=== PATIENT | female | born 1960 | race Caucasian/White ===

== ENCOUNTER → 2018-05-23 | Outpatient (CLI) | payer OTHER | LOC: OD 09:11 | PROVIDERS: ATTEND Otolaryngology | DX: J01.91 Acute recurrent sinusitis, unspecified (principal) | CPT/HCPCS: 36415; 82785; 86003 ==

== ENCOUNTER → 2018-06-03 | Outpatient (CLI) | payer OTHER ==
--- NOTE | 2018-06-03 11:27 | RADIOLOGY REPORT (SQ) ---
EXAM DESCRIPTION: CT SINUSES FOR ENT COMPLETED DATE/TIME: 06/03/2018 9:36 am REASON FOR STUDY: J01.91 ACUTE RECURRENT SINUSITIS, UNSPECIFIED J01.91 ACUTE RECURRENT SINUSITIS, U NSPECIFIED COMPARISON: None. TECHNIQUE: Noncontrast scanning through the paranasal sinuses using bone algorithm. Reconstructed MPR images reviewed. All images stored on PACS. Images acquired for image guided surgery. All CT scanners at this facility use dose modulation, iterative reconstruction, and/or weight based d osing when appropriate to reduce radiation dose to as low as reasonably achievable (ALARA). [facility]: Dose Right [facility]: CareDose [facility]: Dose Right [facility]: Teradose 4D [facility]: [employer] RADIATION DOSE: 45.1 mGy. FINDINGS: NASAL PASSAGES: Clear. No polyps or masses. OSTEOMEATAL UNITS AND NASOFRONTAL DUCTS: Patent. No agger nasi or Bernadette cells. MAXILLARY SINUSES: Well-pneumatized and clear. Maxillary sinus outlets are patent. ETHMOID SINUSES: Well-pneumatized and clear. SPHENOID SINUSES: Well-pneumatized and clear. No sphenoethmoid air cells or pneumatized pterygoid rec ess. No pneumatized dorsal sella. FRONTAL SINUSES: Well-pneumatized and clear. MASTOID AIR CELLS: Clear. ORBITS: Normal and symmetrical. NASAL SEPTUM: Very mild leftward nasal septal deviation. No nasal septal spurs. TEMPOROMANDIBULAR JOINTS: Mild osteoarthritis bilaterally TURBINATES: No pneumatized turbinates. MUCOPERIOSTEAL THICKENING: No. MUCOCELE: No. OTHER: No other significant findings. IMPRESSION: NO EVIDENCE OF ACUTE SINUSITIS. TECHNICAL DOCUMENTATION: JOB ID: [id number] Quality ID # [id number]: Final reports with documentation of one or more dose reduction techniques (e.g., Au tomated exposure control, adjustment of the mA and/or kV according to patient size, use of iterative reconstruction technique) 2010 [employer]- All Rights Reserved Reading location - IP/workstation name: [email or web address]
== END ==
LOC: RAD 13:14
PROVIDERS: ATTEND Otolaryngology
DX: J01.91 Acute recurrent sinusitis, unspecified (principal)
CPT/HCPCS: 70486

== ENCOUNTER 2019-04-01 08:55 | Day surgery (SDC) | payer OTHER ==
[~2019-04-01 08:55] MED LIST: CEFAZOLIN 1 GM/D5W RTU 1 GM/50 ML RTUPB IV PRN; LIDOCAINE 0.5% INJ-PF (5 MG/ML) 50 ML SDV SUBCUT PRN; RINGERS SOLUTION,LACTATED 1,000 ML IV PRN
[2019-04-01] MEDS ORDERED: ONDANSETRON HCL INJ/PF 4 MG/2 ML SDV ONE (09:41)
[2019-04-01] MEDS ORDERED: LIDOCAINE 2% INJ (20 MG/ML) 20 ML MDV ONE (09:41)
[2019-04-01] MEDS ORDERED: MORPHINE SULFATE 10 MG/ML INJ ONE (09:41)
[2019-04-01] MEDS ORDERED: MIDAZOLAM 2 MG/2 ML INJ ONE (09:41)
[2019-04-01] MEDS ORDERED: PROPOFOL INJ 200 MG/20 ML VIAL IV ONE (09:42)
[2019-04-01] MEDS ORDERED: BUPIVACAINE INJ/PF LIPOSOME/PF 266 MG/20 ML SDV ONE (09:47)
[2019-04-01] MEDS: BACITRACIN INJ 50,000 UNIT VIAL ONE ×2 (10:48→11:25)
[2019-04-01] MEDS: POLYMYXIN B SULFATE INJ 500000 UNIT VIAL ONE ×2 (10:49→11:25)
[2019-04-01] MEDS: NORMAL SALINE INJ/PF 0.9% 10 ML SDV ONE ×2 (10:49→11:25)
--- NOTE | 2019-04-01 12:22 | Operative Report ---
Operative Report DATE OF SURGERY: 04/01/19 PREOPERATIVE DIAGNOSIS: Hypertrophy of bone first metatarsophalangeal joint with soft tissue mass left foot. POSTOPERATIVE DIAGNOSIS: Hypertrophy of bone first metatarsalphalangeal joint with associated soft tissue mass left foot. OPERATION: Partial excision of bone first metatarsal with excision of soft tissue mass plantar aspect left foot. SURGEON: LEVI CORNELIUS DRAFTING LAYOUT WORKER: KATE LARSEN ANESTHESIA: LMAC TISSUE REMOVED OR ALTERED: Soft tissue mass left foot sent for pathology and wound culture. Bone not sent for pathology. COMPLICATIONS: None ESTIMATED BLOOD LOSS: Less then 0.1 mL. PROCEDURE: Following induction of IV and regional local anesthesia, the left foot and leg were prepped and draped in the usual sterile manner, a pneumatic tourniquet was placed around the left ankle and inflated 250 mmHg after exsanguination of limb via Esmarch bandage. The following surgical procedure was then performed: Partial excision of bone first metatarsal with removal of soft tissue mass plantar aspect left foot. Attention was directed to the medial aspect of the first metatarsal phalangeal joint where an approximately 4 cm incision was made, the incision was deepened via sharp dissection all bleeders were clamped and bovied as necessary for the purposes of hemostasis. Utilizing blunt dissection the soft tissue mass at the plantar aspect of the first metatarsal phalangeal joint was isolated, this was then removed in pieces by sharp dissection. The mass was approximately 3 cm by 3 cm x 1.5 cm. The mass was sent for both pathology and wound culture. A capsular incision was made in the same manner as the original skin incision and reflected plantarly from the bone. Utilizing a [place] sagittal saw the hypertrophied bone at the plantar aspect of the first metatarsal was osteotomized perpendicular to the long axis of the bone and removed in toto from the wound. The plantar aspect of the first metatarsal was then rasped smooth utilizing a [place] crosscut rasp. An x-ray was taken to make sure that enough bone had been removed and that the sesamoids were not involved. X-ray showed that enough bone had been removed and that the sesamoids had retracted sufficiently so they would not be a problem. The area was then flushed with copious amounts of antibacterial saline solution. Plantar aspect of the first metatarsal was then palpated through the skin and no bony prominences could be felt. The capsule was then coaptated and maintained utilizing simple interrupted sutures of 3-0 Vicryl. The subcutaneous tissue was coaptated and maintained utilizing simple interrupted sutures of 4-0 Vicryl. The skin was then coaptated and maintained utilizing horizontal mattress sutures of 5-0 nylon. A dry sterile dressing was then applied consisting of Tan silk, 4 x 4's, fluffs, conform, Kerlix and Coban. The pneumatic tourniquet was released it was noted that all digits were warm and viable the patient was transferred to the recovery room.
--- NOTE | 2019-04-01 12:27 | PDOC DISCHARGE SUMMARY ---
Discharge Summary-[facility] Discharge Summary: Date of admission: April 01, 2019 Date of discharge: April 01, 2019 Surgical procedure: Partial excision of bone first metatarsal with removal of soft tissue mass plantar aspect left foot. Postoperative diagnosis: Hypertrophy of bone first metatarsal with soft tissue mass plantar aspect left foot. Surgeon: Perla Tate D.P.M. Billet Examiner: Henrique John D.P.M. Patient was admitted to [facility] of [place] with a chief complaint of a painful mass underneath her left foot she stated he kept opening up and grayish matter would come out of it. X-ray showed that there was a high enlargement of bone underneath the first metatarsal left foot. Ultrasound showed that there was a mass underneath the first metatarsal of the left foot however it was ambiguous in nature. Patient stated that since she was having such pain she wanted to have the problem surgically corrected. The patient underwent the above surgical procedure without any complications. Patient was dispensed a surgical shoe, an ice pack, postoperative instructions, and postoperative prescriptions. The prescriptions were for Percocet 5/10 to 25 mg #30, promethazine 25 mg #15, and cephalexin 500 mg #4. Patient was discharged from [facility].
--- NOTE | 2019-04-01 12:33 | RADIOLOGY REPORT (SQ) ---
EXAM DESCRIPTION: FOOT LEFT 2 VIEWS; NO CHG FLUORO COMPLETED DATE/TIME: 04/01/2019 11:45 am REASON FOR STUDY: REMOVAL OF BONE 1ST METATARSAL M89.372 HYPERTROPHY OF BONE, LEFT ANKLE AND FOOT COMPARISON: None. FLUOROSCOPY TIME: 5 seconds. 3 images saved to PACS. TECHNIQUE: Intra-operative images acquired during surgical procedure to evaluate progress. NUMBER OF IMAGES: 3 images. LIMITATIONS: None. FINDINGS: Images of the 1st metatarsal acquired during the procedure. IMPRESSION: IMAGE(S) OBTAINED DURING PROCEDURE. COMMENT: Quality ID 145: Final reports for procedures using fluoroscopy that document radiation exp osure indices, or exposure time and number of fluorographic images (if radiation exposure indices are not available) Please consult full operative report of the attending physician for description of the procedure. TECHNICAL DOCUMENTATION: JOB ID: [id number] [employer]- All Rights Reserved Reading location - IP/workstation name: [email or web address]
--- NOTE | 2019-04-01 12:33 | RADIOLOGY REPORT (SQ) ---
EXAM DESCRIPTION: FOOT LEFT 2 VIEWS; NO CHG FLUORO COMPLETED DATE/TIME: 04/01/2019 11:45 am REASON FOR STUDY: REMOVAL OF BONE 1ST METATARSAL M89.372 HYPERTROPHY OF BONE, LEFT ANKLE AND FOOT COMPARISON: None. FLUOROSCOPY TIME: 5 seconds. 3 images saved to PACS. TECHNIQUE: Intra-operative images acquired during surgical procedure to evaluate progress. NUMBER OF IMAGES: 3 images. LIMITATIONS: None. FINDINGS: Images of the 1st metatarsal acquired during the procedure. IMPRESSION: IMAGE(S) OBTAINED DURING PROCEDURE. COMMENT: Quality ID 145: Final reports for procedures using fluoroscopy that document radiation exp osure indices, or exposure time and number of fluorographic images (if radiation exposure indices are not available) Please consult full operative report of the attending physician for description of the procedure. TECHNICAL DOCUMENTATION: JOB ID: [id number] [employer]- All Rights Reserved Reading location - IP/workstation name: [email or web address]
== END 2019-04-01 12:58 | disposition home or self-care (01) ==
LOC: SC 08:55
PROVIDERS: ATTEND Podiatrist Foot Surgery
DX: M89.372 Hypertrophy of bone, left ankle and foot (principal); R22.41 Localized swelling, mass and lump, right lower limb
CPT/HCPCS: 87070; 87205; 88304 ×2; 73620; 01480; 28173; J2250; J3490 ×4; J0690; J2270; J2405; J2704; C9290